=== PATIENT | female | born 1970 | race Caucasian/White ===

== ENCOUNTER → 2017-09-15 | Outpatient (CLI) | payer BC ==
[~2017-09-15] MED LIST: NO HOME MEDICATIONS
== END ==
LOC: MC.RAD 08:57
DX: Z12.31 Encounter for screening mammogram for malignant neoplasm of breast (principal)

== ENCOUNTER → 2021-06-14 | Outpatient (CLI) | payer BC | LOC: MC.RAD 07:47 | DX: N60.02 Solitary cyst of left breast (principal); N60.01 Solitary cyst of right breast; R59.0 Localized enlarged lymph nodes; N63.10 Unspecified lump in the right breast, unspecified quadrant; N63.20 Unspecified lump in the left breast, unspecified quadrant ==

== ENCOUNTER → 2022-04-22 | Outpatient (CLI) | payer BC | LOC: COL.RAD 14:00 | DX: E04.9 Nontoxic goiter, unspecified (principal); R13.10 Dysphagia, unspecified ==

== ENCOUNTER → 2022-05-11 | Outpatient (CLI) | payer BC | LOC: COL.RAD 11:55 | DX: E05.90 Thyrotoxicosis, unspecified without thyrotoxic crisis or storm (principal) | CPT/HCPCS: A9516 ==